=== PATIENT | female | born 1940 | race Caucasian/White ===

== ENCOUNTER → 2017-02-10 | Outpatient (CLI) | payer MEDICARE, OTHER ==
--- NOTE | 2017-02-10 18:54 | RADIOLOGY REPORT (SQ) ---
EXAM DESCRIPTION: MRI ORBIT/FACIAL/NECK COMBO COMPLETED DATE/TIME: 02/10/2017 6:10 pm REASON FOR STUDY: R22.0 LOCALIZED SWELLING,MASS AND LUMP,HEAD R22.0 LOCALIZED SWELLING, MASS AND KARISHMA MP, HEAD COMPARISON: CT BRAIN 09/14/2013 TECHNIQUE: Multiplanar multisequence imaging of the soft tissues of the neck performed without and w ith contrast. All images stored on PACS. CONTRAST TYPE AND DOSE: 15 mL Multihance. RENAL FUNCTION: GFR > 60. LIMITATIONS: Mild motion artifact FINDINGS: In the superficial lobe of the right parotid gland, superficial to the facial vein, an 11 x 9 mm well-circumscribed solid enhancing nodule is present with slightly lobular borders. No large feeding or draining blood vessels. Best shown on axial T1 image 16, coronal image 15, and sagittal i mage 5. 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 No other right parotid nodules or cysts. Left parotid gland, bilateral submandibular and sublingual glands are unremarkable. SKULL BASE: Inferior brain parenchyma in the field of view demonstrates minimal age-appropriate white matter disease in the bifrontal and biparietal regions. MAJOR SALIVARY GLANDS: As above LYMPHADENOPATHY: No adenopathy. MUCOSAL MASSES OR ASYMMETRY: No mucosal masses or asymmetry. LARYNX/CORDS: No abnormal findings. VASCULAR STRUCTURES: The major vessels are patent. LUNG APICES: Not well seen BONES: No high-grade central canal stenosis THYROID: Not well seen, at the bottom edge of the field of view PARANASAL SINUSES: Minimal mucous membrane thickening in the bilateral ethmoid air cells OTHER: No other significant finding. 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
== END ==
LOC: RAD 16:15
PROVIDERS: ATTEND Otolaryngology
DX: R22.0 Localized swelling, mass and lump, head (principal)
CPT/HCPCS: 82565; 70543; A9576

== ENCOUNTER → 2017-02-28 | Outpatient (CLI) | payer MEDICARE, OTHER ==
--- NOTE | 2017-02-28 13:31 | RADIOLOGY REPORT (SQ) ---
EXAM DESCRIPTION: CHEST PA/LATERAL COMPLETED DATE/TIME: 02/28/2017 12:56 pm REASON FOR STUDY: COUGH COMPARISON: 07/20/2009. EXAM PARAMETERS: NUMBER OF VIEWS: two views TECHNIQUE: Digital Frontal and Lateral radiographic views of the chest acquired. RADIATION DOSE: NA LIMITATIONS: none FINDINGS: LUNGS AND PLEURA: No opacities, masses or pneumothorax. No pleural effusion. MEDIASTINUM AND HILAR STRUCTURES: No masses or contour abnormalities. HEART AND VASCULAR STRUCTURES: Heart normal size. No evidence for failure. BONES: No acute findings. HARDWARE: None in the chest. OTHER: No other significant finding. IMPRESSION: NO SIGNIFICANT RADIOGRAPHIC FINDING IN THE CHEST. TECHNICAL DOCUMENTATION: JOB ID: [id number] [employer] All Rights Reserved
== END ==
LOC: OD 12:34
PROVIDERS: ATTEND Nurse Practitioner Acute Care
DX: R05 Cough (principal)
CPT/HCPCS: 71046

== ENCOUNTER 2017-03-06 09:42 | Inpatient (IN) | payer MEDICARE, OTHER ==
[2017-03-06 10:23] LABS: VENOUS BLOOD BASE EXCESS 6.1 mmol/L; VENOUS BLOOD HCO3 30.5 mmol/L (20-32); VENOUS BLOOD PCO2 42.9 mmHg (35-63); VENOUS BLOOD PH 7.47 (7.30-7.42)
[2017-03-06 10:29] LABS: HEMATOCRIT 41.5 % (36.0-47.0); HEMOGLOBIN 13.9 g/dL (12.0-15.5); MEAN CORPUSCULAR HEMOGLOBIN 27.7 pg (27.0-33.4); MEAN CORPUSCULAR HGB CONC 33.6 g/dL (32.0-36.0); MEAN CORPUSCULAR VOLUME 82 fl (80-97); PLATELET COUNT 323 10^3/uL (150-450); RED BLOOD COUNT 5.03 10^6/uL (3.72-5.28); RED CELL DISTRIBUTION WIDTH 13.4 % (11.5-14.0); WHITE BLOOD COUNT 11.2 10^3/uL (4.0-10.5)
[2017-03-06 10:30] LABS: INTERNATIONAL RATION (INR) 1.05; PROTHROMBIN TIME 14.4 SEC (11.4-15.4)
--- NOTE | 2017-03-06 10:36 | RADIOLOGY REPORT (SQ) ---
EXAM DESCRIPTION: CHEST SINGLE VIEW COMPLETED DATE/TIME: 03/06/2017 10:19 am REASON FOR STUDY: bed 19 chest sepsis protocol COMPARISON: 02/28/2017 EXAM PARAMETERS: NUMBER OF VIEWS: One view. TECHNIQUE: Single frontal radiographic view of the chest acquired. RADIATION DOSE: NA LIMITATIONS: None. FINDINGS: LUNGS AND PLEURA: No opacities, masses or pneumothorax. No pleural effusion. MEDIASTINUM AND HILAR STRUCTURES: Stable appearance. HEART AND VASCULAR STRUCTURES: Heart normal in size. Normal vasculature. BONES: No acute findings. HARDWARE: None in the chest. OTHER: No other significant finding. IMPRESSION: NO ACUTE RADIOGRAPHIC FINDING IN THE CHEST. TECHNICAL DOCUMENTATION: JOB ID: [id number] [employer]- All Rights Reserved
[2017-03-06] MEDS ORDERED: IPRATROPIUM/ALBUTEROL 0.5-2.5 MG/3 ML AMPUL NEB ONE (10:48)
[2017-03-06 10:51] LABS: ABSOLUTE LYMPHOCYTES# (MANUAL) 1.6 10^3/uL (0.5-4.7); ABSOLUTE MONOCYTES # (MANUAL) 0.8 10^3/uL (0.1-1.4); ABSOLUTE NEUTROPHILS# (MANUAL) 8.8 10^3/uL (1.7-8.2); BAND NEUTROPHILS % (MANUAL) 18 % (3-5); BASOPHILS % (MANUAL) 0 % (0-2); EOSINOPHILS % (MANUAL) 0 % (0-6); LYMPHOCYTES % (MANUAL) 13 % (13-45); METAMYELOCYTES % (MANUAL) 1 % (0); MONOCYTES % (MANUAL) 7 % (3-13); PLATELET COMMENT ADEQUATE; ROULEAUX SLIGHT; SEGMENTED NEUTROPHILS % (MAN) 60 % (42-78); TOTAL CELLS COUNTED 100; TOXIC GRANULATION 3+; TOXIC VACUOLATION PRESENT
[2017-03-06 11:01] LABS: ALANINE AMINOTRANSFERASE 27 U/L (9-52); ALBUMIN 3.5 g/dL (3.5-5.0); ALKALINE PHOSPHATASE 100 U/L (38-126); ANION GAP 12 (5-19); ASPARTATE AMINO TRANSFERASE 20 U/L (14-36); BLOOD UREA NITROGEN 25 mg/dL (7-20); CALCIUM 8.9 mg/dL (8.4-10.2); CARBON DIOXIDE 30 mmol/L (22-30); CHLORIDE 97 mmol/L (98-107); GLUCOSE 153 mg/dL (75-110); POTASSIUM 3.7 mmol/L (3.6-5.0); SODIUM 139.3 mmol/L (137-145); TOTAL PROTEIN 6.4 g/dL (6.3-8.2)
[2017-03-06] MEDS: NORMAL SALINE 1000 ML 1,000 ML IV PRN ×3 (11:01→14:39)
[2017-03-06 11:34] LABS: APPEARANCE,URINE CLOUDY; BILIRUBIN,URINE SMALL (NEGATIVE); COLOR,URINE AMBER; GLUCOSE, URINE 50 mg/dL (NEGATIVE); KETONES,URINE NEGATIVE (NEGATIVE); LEUKOCYTE ESTERASE,URINE NEGATIVE (NEGATIVE); NITRITE,URINE NEGATIVE (NEGATIVE); PROTEIN,URINE >=500 mg/dL (NEGATIVE); URINE SPECIFIC GRAVITY 1.032
[2017-03-06] MEDS ORDERED: CEFTRIAXONE INJ 1000 MG VIAL IV ONE (12:39)
--- NOTE | 2017-03-06 13:15 | ER Document Report ---
ED General - General Chief Complaint: General Weakness Stated Complaint: WEAKNESS Time Seen by Provider: 03/06/17 09:53 Mode of Arrival: Medic Information source: Patient Notes: 77 yr old female who was recently diagnosed with influenza and treated with tamiflu presents with complaitns of sob and productive cough with weakness. TRAVEL OUTSIDE OF THE [place] IN LAST 30 DAYS: No - HPI Onset: Last week Onset/Duration: Worse Quality of pain: Achy Severity: Mild Pain Level: 1 Associated symptoms: Body/muscle aches, Productive cough, Fever, Shortness of breath Exacerbated by: Denies Relieved by: Denies Similar symptoms previously: Yes Recently seen / treated by doctor: Yes - Related Data Allergies/Adverse Reactions: codeine Allergy (Verified 03/06/17 10:43) diazepam [From Valium] Allergy (Verified 03/06/17 10:43) estrogens, conjugated [From Premarin] Allergy (Verified 03/06/17 10:43) hydrocortisone [From Hydrocortone] Allergy (Verified 03/06/17 10:43) latex Allergy (Verified 03/06/17 10:43) nitrofurantoin [From Macrodantin] Allergy (Verified 03/06/17 10:43) pseudoephedrine [From Sudafed] Allergy (Verified 03/06/17 10:43) Sulfa (Sulfonamide Antibiotics) Allergy (Verified 03/06/17 10:43) Home Medications: Current Home Medications Aspirin [Aspirin EC] 81 mg PO DAILY 03/06/17 [History] Atorvastatin Calcium 10 mg PO DAILY 03/06/17 [History] Past Medical History - Social History Smoking Status: Never Smoker Cigarette use (# per day): No Chew tobacco use (# tins/day): No Smoking Education Provided: No Frequency of alcohol use: None Drug Abuse: None Family History: Reviewed & Not Pertinent Patient has suicidal ideation: No Patient has homicidal ideation: No - Past Medical History Cardiac Medical History: Reports: Hx Hypercholesterolemia Renal/ Medical History: Denies: Hx Peritoneal Dialysis Musculoskeltal Medical History: Reports Hx Musculoskeletal Deformity, Reports Hx Musculoskeletal Trauma Past Surgical History: Reports: Hx Cholecystectomy, Hx Hysterectomy, Hx Orthopedic Surgery - left knee, Hx Tubal Ligation - Immunizations Hx Diphtheria, Pertussis, Tetanus Vaccination: No Review of Systems - Review of Systems Notes: REVIEW OF SYSTEMS: CONSTITUTIONAL : Denies fever, chills, or sweats. Denies recent illness. EENT: Denies eye, ear, throat, or mouth pain or symptoms. Denies nasal or sinus congestion or discharge. Denies throat, tongue, or mouth swelling or difficulty swallowing. CARDIOVASCULAR: Denies chest pain. Denies palpitations or racing or irregular heart beat. Denies ankle edema. RESPIRATORY: Admits to cough productive GASTROINTESTINAL: Denies abdominal pain or distention. Denies nausea, vomiting , or diarrhea. Denies blood in vomitus, stools, or per rectum. Denies black, tarry stools. Denies constipation. GENITOURINARY: Denies difficulty urinating, painful urination, burning, frequency, blood in urine, or discharge. FEMALE GENITOURINARY: Denies vaginal bleeding, heavy or abnormal periods, irregular periods. Denies vaginal discharge or odor. MUSCULOSKELETAL: Denies back or neck pain or stiffness. Denies joint pain or swelling. SKIN: Denies rash, lesions or sores. HEMATOLOGIC : Denies easy bruising or bleeding. LYMPHATIC: Denies swollen, enlarged glands. NEUROLOGICAL: Denies confusion or altered mental status. Denies passing out or loss of consciousness. Denies dizziness or lightheadedness. Denies headache. Denies weakness or paralysis or loss of use of either side. Denies problems with gait or speech. Denies sensory loss, numbness, or tingling. Denies seizures. PSYCHIATRIC: Denies anxiety or stress. Denies depression, suicidal ideation, or homicidal ideation. ALL OTHER SYSTEMS REVIEWED AND NEGATIVE. PHYSICAL EXAMINATION: GENERAL: Ill-appearing HEAD: Atraumatic, normocephalic. EYES: Pupils equal round and reactive to light, extraocular movements intact, conjunctiva are normal. ENT: Nares patent, oropharynx clear without exudates. Moist mucous membranes. NECK: Normal range of motion, supple without lymphadenopathy LUNGS: Coarse breath sounds all throughout productive green sputum noted HEART: Regular rate and rhythm without murmurs ABDOMEN: Soft, nontender, nondistended abdomen. No guarding, no rebound. No masses appreciated. Female : deferred Musculoskeletal: Normal range of motion, no pitting or edema. No cyanosis. NEUROLOGICAL: Cranial nerves grossly intact. Normal speech, normal gait. Normal sensory, motor exams PSYCH: Normal mood, normal affect. SKIN: Warm, Dry, normal turgor, no rashes or lesions noted. Dictation was performed using [employer] voice recognition software Physical Exam - Vital signs Vitals: Temp Resp Pulse Ox 98.9 F 23 H 89 L 03/06/17 09:59 03/06/17 09:59 03/06/17 09:59 Course - Re-evaluation Re-evalutation: 03/06/17 14:08 Patient is noted to have a significant bandemia, she is hypoxic requiring nasal cannula, she was 85% on room air she is now on 4 L satting 95%. I believe the patient has post influenza streptococcal pneumonia, she was started on Rocephin Patient will be admitted to the hospitalist service - Vital Signs Vital signs: Temp Pulse Resp BP Pulse Ox 98.9 F 19 144/63 H 94 03/06/17 09:59 03/06/17 13:01 03/06/17 13:01 03/06/17 13:01 - Laboratory Result Diagrams: 03/06/17 10:07 03/06/17 10:07 Laboratory results interpreted by me: 03/06/17 03/06/17 03/06/17 10:07 10:07 10:07 WBC 11.2 H Band Neutrophils % 18 H Metamyelocytes % 1 H Abs Neuts (Manual) 8.8 H VBG pH 7.47 H Chloride 97 L BUN 25 H Glucose 153 H Total Bilirubin 2.0 H Direct Bilirubin 1.0 H Urine Protein Urine Glucose (UA) Urine Bilirubin Urine Urobilinogen 03/06/17 11:16 WBC Band Neutrophils % Metamyelocytes % Abs Neuts (Manual) VBG pH Chloride BUN Glucose Total Bilirubin Direct Bilirubin Urine Protein >=500 H Urine Glucose (UA) 50 H Urine Bilirubin SMALL H Urine Urobilinogen 4.0 H - Diagnostic Test Radiology reviewed: Image reviewed, Reports reviewed - EKG Interpretation by Me EKG shows normal: Sinus rhythm, [place], Intervals, QRS Complexes Critical Care Note - Critical Care Note Total time excluding time spent on procedures (mins): 35 Comments: 35 minutes of critical care time spent in direct contact evaluating and reevaluating the patient, treating symptoms, reviewing labs and studies and speaking with family and consultants excluding any procedures Discharge - Discharge Clinical Impression: Bandemia, Influenza, Hypoxemia Condition: Stable Disposition: ADMITTED INPATIENT Admitting Provider: Hospitalist Unit Admitted: Telemetry
[2017-03-06] MEDS ORDERED: ACETAMINOPHEN 325 MG TABLET PO PRN (13:29)
[2017-03-06] MEDS ORDERED: GUAIFENESIN SYRP 200 MG/10 ML UDC PO PRN (13:29)
--- NOTE | 2017-03-06 14:21 | PDOC H&P ---
History of Present Illness Admission Date/PCP: SANDRA ECHEVERRIA MD Patient complains of: Cough congestion and fever History of Present Illness: SHAVON ECHEVERRIA is a 77 year old female with past medical history of hyperlipidemia who presented to the ED with complaint of cough congestion and fever. Patient states on marek, she was feeling well. Patient states on Day she became sick with cough fever. The following day patient went to the urgent care and was diagnosed with flu. Patient was treated for flu and given something for cough. Patient states she continued to have cough fever and chills. Patient has been so congested that she has been having difficulty breathing. Patient has not been eating well and is feeling weak. Patient says normally she walks around and swim 17 labs 3 times a week. Patient states that her abdominal muscles are sore from coughing. Patient has been is also sick. ED patient was noted to be hypoxic satting 85% on room air. Patient was given a nebulizer treatment and had copious phlegm production. The phlegm was greenish in color. The hospitalist was called to admit patient for hypoxia and possible pneumonia. Past Medical History Cardiac Medical History: Reports: Hyperlipidema Past Surgical History Past Surgical History: Reports: Cholecystectomy, Hysterectomy, Orthopedic Surgery - left knee, Tubal Ligation Social History Smoking Status: Never Smoker - Advance Directive Resuscitation Status: Full Code Family History Family History: CAD, CVA Parental Family History Reviewed: No Children Family History Reviewed: No Sibling(s) Family History Reviewed.: No Medication/Allergy Home Medications: Aspirin [Aspirin EC] 81 mg PO DAILY 03/06/17 Atorvastatin Calcium 10 mg PO DAILY 03/06/17 Allergies/Adverse Reactions: codeine Allergy (Verified 03/06/17 10:43) diazepam [From Valium] Allergy (Verified 03/06/17 10:43) estrogens, conjugated [From Premarin] Allergy (Verified 03/06/17 10:43) hydrocortisone [From Hydrocortone] Allergy (Verified 03/06/17 10:43) latex Allergy (Verified 03/06/17 10:43) nitrofurantoin [From Macrodantin] Allergy (Verified 03/06/17 10:43) pseudoephedrine [From Sudafed] Allergy (Verified 03/06/17 10:43) Sulfa (Sulfonamide Antibiotics) Allergy (Verified 03/06/17 10:43) Physical Exam Vital Signs: Temp Pulse Resp BP Pulse Ox 98.9 F 19 144/63 H 94 03/06/17 09:59 03/06/17 13:01 03/06/17 13:01 03/06/17 13:01 Intake & Output 03/05/17 03/06/17 03/07/17 06:59 06:59 06:59 Weight 86.183 kg General appearance: PRESENT: no acute distress, obese, well-developed, well- nourished Head exam: PRESENT: normocephalic Eye exam: PRESENT: EOMI. ABSENT: scleral icterus Ear exam: PRESENT: normal external ear exam Mouth exam: PRESENT: moist Neck exam: ABSENT: carotid bruit, JVD, lymphadenopathy, thyromegaly Respiratory exam: PRESENT: rhonchi - Patient unable to speak in complete sentences without pausing., tachypnea. ABSENT: rales, wheezes Cardiovascular exam: PRESENT: RRR. ABSENT: diastolic murmur, rubs, systolic murmur Pulses: PRESENT: normal dorsalis pedis pul Vascular exam: PRESENT: normal capillary refill GI/Abdominal exam: PRESENT: normal bowel sounds, soft. ABSENT: distended, guarding, mass, organolmegaly, rebound, tenderness Rectal exam: PRESENT: deferred Extremities exam: PRESENT: full ROM. ABSENT: calf tenderness, clubbing, pedal edema Neurological exam: PRESENT: alert, awake, oriented to person, oriented to place , oriented to time, oriented to situation, CN II-XII grossly intact. ABSENT: motor sensory deficit Psychiatric exam: PRESENT: appropriate affect, normal mood. ABSENT: homicidal ideation, suicidal ideation Skin exam: PRESENT: dry, intact, warm. ABSENT: cyanosis, rash Results Laboratory Results: 03/06/17 10:07 03/06/17 10:07 03/06/17 03/06/17 03/06/17 10:07 10:07 10:07 WBC 11.2 H RBC 5.03 Hgb 13.9 Hct 41.5 MCV 82 MCH 27.7 MCHC 33.6 RDW 13.4 Plt Count 323 Seg Neutrophils % Not Reportable Lymphocytes % Not Reportable Monocytes % Not Reportable Eosinophils % Not Reportable Basophils % Not Reportable Absolute Neutrophils Not Reportable Absolute Lymphocytes Not Reportable Absolute Monocytes Not Reportable Absolute Eosinophils Not Reportable Absolute Basophils Not Reportable VBG pH VBG pCO2 VBG HCO3 VBG Base Excess Sodium 139.3 Potassium 3.7 Chloride 97 L Carbon Dioxide 30 Anion Gap 12 BUN 25 H Creatinine 0.89 Est GFR ( Amer) > 60 Est GFR (Non-Af Amer) > 60 Glucose 153 H Lactic Acid 1.5 Calcium 8.9 Total Bilirubin 2.0 H AST 20 ALT 27 Alkaline Phosphatase 100 Total Protein 6.4 Albumin 3.5 Urine Color Urine Appearance Urine pH Ur Specific [place] Urine Protein Urine Glucose (UA) Urine Ketones Urine Blood Urine Nitrite Ur Leukocyte Esterase Urine WBC (Auto) Urine RBC (Auto) 03/06/17 03/06/17 10:07 11:16 WBC RBC Hgb Hct MCV MCH MCHC RDW Plt Count Seg Neutrophils % Lymphocytes % Monocytes % Eosinophils % Basophils % Absolute Neutrophils Absolute Lymphocytes Absolute Monocytes Absolute Eosinophils Absolute Basophils VBG pH 7.47 H VBG pCO2 42.9 VBG HCO3 30.5 VBG Base Excess 6.1 Sodium Potassium Chloride Carbon Dioxide Anion Gap BUN Creatinine Est GFR ( Amer) Est GFR (Non-Af Amer) Glucose Lactic Acid Calcium Total Bilirubin AST ALT Alkaline Phosphatase Total Protein Albumin Urine Color DEANDRA Urine Appearance CLOUDY Urine pH 5.0 Ur Specific [place] 1.032 Urine Protein >=500 H Urine Glucose (UA) 50 H Urine Ketones NEGATIVE Urine Blood NEGATIVE Urine Nitrite NEGATIVE Ur Leukocyte Esterase NEGATIVE Urine WBC (Auto) 14 Urine RBC (Auto) 12 Impressions: Chest X-Ray 03/06/17 00:00 IMPRESSION: NO ACUTE RADIOGRAPHIC FINDING IN THE CHEST. Assessment & Plan - Diagnosis (1) Hypoxemia Is this a current diagnosis for this admission?: Yes Plan: Likely due to her respiratory congestion following a viral infection. Patient will receive aggressive pulmonary toilet along with supplemental oxygen. Patient is currently on 4 L. (2) Influenza Is this a current diagnosis for this admission?: Yes Plan: She was recently treated for influenza however continues to be febrile with cough and malaise. Continue supportive care with IV hydration and antipyretics. (3) Dehydration Is this a current diagnosis for this admission?: Yes Plan: Will continue IV hydration with normal saline at 75 cc an hour. (4) Congestion of respiratory tract Is this a current diagnosis for this admission?: Yes Plan: Could be a respiratory infection secondary to her fluids up. Patient chest x- ray is negative however on physical exam she is severely congested along with hypoxia. Patient started on nebs along with Mucomyst to be used with a flutter valve. Patient is also on ceftriaxone and azithromycin. Sputum culture was ordered. (5) Bandemia Is this a current diagnosis for this admission?: Yes Plan: Most likely following her viral infection. Patient started on ceftriaxone and azithromycin after blood cultures were drawn. Will monitor. (6) Lipidemia Is this a current diagnosis for this admission?: Yes Plan: Continue on statin. - Time Time Spent: 30 to 50 Minutes Critical Time spent with patient: Less than 15 minutes Anticipated discharge: Home Within: within 72 hours
--- NOTE | 2017-03-06 16:46 | EKG REPORT ---
SEVERITY:- BORDERLINE ECG - SINUS TACHYCARDIA NONSPECIFIC ANTERIOR ST-T CHANGES : Confirmed by: Manuel Gordon MD 06-Mar-2017 16:45:06
[2017-03-06] MEDS: ACETYLCYSTEINE 20% SOLN 800 MG/4 ML VIAL.NEB NEB SCH (20:45)
[2017-03-06] MEDS: LEVALBUTEROL HCL NEB 1.25 MG/3 ML AMPUL NEB SCH (20:45)
[2017-03-06] MEDS: BENZONATATE 100 MG CAPSULE PO SCH (21:36)
[2017-03-07] MEDS: BENZONATATE 100 MG CAPSULE PO SCH ×3 (05:07→21:48)
[2017-03-07] MEDS: LANSOPRAZOLE 30 MG TAB.RAP.DR PO SCH (05:08)
[2017-03-07] MEDS: NORMAL SALINE 1000 ML 1,000 ML IV PRN (05:09)
[2017-03-07 06:19] LABS: ANION GAP 8 (5-19); BLOOD UREA NITROGEN 18 mg/dL (7-20); CALCIUM 8.2 mg/dL (8.4-10.2); CARBON DIOXIDE 30 mmol/L (22-30); CHLORIDE 105 mmol/L (98-107); GLUCOSE 99 mg/dL (75-110); POTASSIUM 3.5 mmol/L (3.6-5.0); SODIUM 142.8 mmol/L (137-145)
[2017-03-07 06:30] LABS: ABSOLUTE NEUT (AUTO) 7.1 10^3/uL (1.7-8.2); BASOPHILS % (AUTO) 0.4 % (0-2); EOSINOPHILS % (AUTO) 0.1 % (0-6); HEMATOCRIT 35.4 % (36.0-47.0); MEAN CORPUSCULAR HGB CONC 33.8 g/dL (32.0-36.0); MEAN CORPUSCULAR VOLUME 83 fl (80-97); MONOCYTES % (AUTO) 10.5 % (3-13); PLATELET COUNT 269 10^3/uL (150-450); RED BLOOD COUNT 4.29 10^6/uL (3.72-5.28); RED CELL DISTRIBUTION WIDTH 13.7 % (11.5-14.0); TOTAL CELLS COUNTED % (AUTO) 100 %; WHITE BLOOD COUNT 9.1 10^3/uL (4.0-10.5)
[2017-03-07] MEDS: ACETYLCYSTEINE 20% SOLN 800 MG/4 ML VIAL.NEB NEB SCH (08:33)
[2017-03-07] MEDS: LEVALBUTEROL HCL NEB 1.25 MG/3 ML AMPUL NEB SCH ×3 (08:33→19:56)
[2017-03-07] MEDS ORDERED: CEFTRIAXONE 1 GM/D5W RTU 1 GM/50 ML RTUPB IV SCH (10:00)
[2017-03-07] MEDS: ASPIRIN 81 MG TABLET, ENT COATED PO SCH (10:44)
[2017-03-07] MEDS: AZITHROMYCIN 250 MG TABLET PO SCH (10:44)
[2017-03-07] MEDS: CEFTRIAXONE SODIUM 1,000 MG in DEXTROSE 5%-WATER 50 ML IV SCH (10:45)
--- NOTE | 2017-03-07 16:29 | PDOC PROGRESS REPORT ---
Subjective Progress Note for:: 03/07/17 Subjective:: Patient presented with respiratory symptoms. Sputum growing H. Influenza. Patient states she has a horrible night. Patient still coughing and congested. Reason For Visit: PNEUMONIA Physical Exam Vital Signs: Temp Pulse Resp BP Pulse Ox 98.6 F 100 18 128/54 H 98 03/07/17 12:01 03/07/17 14:00 03/07/17 14:00 03/07/17 12:01 03/07/17 14:00 Intake & Output 03/06/17 03/07/17 03/08/17 06:59 06:59 06:59 Intake Total 825 222 Balance 825 222 Weight 85.5 kg General appearance: PRESENT: no acute distress, obese Head exam: PRESENT: normocephalic Eye exam: PRESENT: EOMI. ABSENT: scleral icterus Ear exam: PRESENT: normal external ear exam Mouth exam: PRESENT: moist Neck exam: ABSENT: carotid bruit, JVD, lymphadenopathy, thyromegaly Respiratory exam: PRESENT: other - congested with cough. ABSENT: rales, rhonchi , wheezes Cardiovascular exam: PRESENT: RRR. ABSENT: diastolic murmur, rubs, systolic murmur GI/Abdominal exam: PRESENT: normal bowel sounds, soft. ABSENT: distended, guarding, mass, organolmegaly, rebound, tenderness Rectal exam: PRESENT: deferred Extremities exam: PRESENT: full ROM. ABSENT: calf tenderness, clubbing, pedal edema Neurological exam: PRESENT: alert, awake, oriented to person, oriented to place , oriented to time, oriented to situation, CN II-XII grossly intact. ABSENT: motor sensory deficit Psychiatric exam: PRESENT: appropriate affect, normal mood. ABSENT: homicidal ideation, suicidal ideation Skin exam: PRESENT: dry, intact, warm. ABSENT: cyanosis, rash Results Laboratory Results: 03/07/17 05:48 03/07/17 05:48 03/07/17 03/07/17 05:48 05:48 WBC 9.1 RBC 4.29 Hgb 12.0 Hct 35.4 L MCV 83 MCH 28.0 MCHC 33.8 RDW 13.7 Plt Count 269 Seg Neutrophils % 78.0 Lymphocytes % 11.0 L Monocytes % 10.5 Eosinophils % 0.1 Basophils % 0.4 Absolute Neutrophils 7.1 Absolute Lymphocytes 1.0 Absolute Monocytes 1.0 Absolute Eosinophils 0.0 Absolute Basophils 0.0 Sodium 142.8 Potassium 3.5 L Chloride 105 Carbon Dioxide 30 Anion Gap 8 BUN 18 Creatinine 0.61 Est GFR ( Amer) > 60 Est GFR (Non-Af Amer) > 60 Glucose 99 Calcium 8.2 L Impressions: Chest X-Ray 03/06/17 00:00 IMPRESSION: NO ACUTE RADIOGRAPHIC FINDING IN THE CHEST. Assessment & Plan - Diagnosis (1) Pneumonia Qualifiers: Pneumonia type: due to Haemophilus influenzae Laterality: unspecified laterality Is this a current diagnosis for this admission?: Yes Plan: Patient on ceftriaxone and azithromycin. Continue current management. (2) Hypoxemia Is this a current diagnosis for this admission?: Yes Plan: Likely due to her respiratory congestion following a viral infection. Patient will receive aggressive pulmonary toilet along with supplemental oxygen. Patient sating 94% on 2L. (3) Influenza Is this a current diagnosis for this admission?: Yes Plan: She was recently treated for influenza however continues to be febrile with cough and malaise. Patient has not been febrile in the hospital. Patient is feeling better but is still congested. Will continue supportive care. (4) Dehydration Is this a current diagnosis for this admission?: Yes Plan: Continue IV hydration with normal saline at 75 cc an hour. (5) Congestion of respiratory tract Is this a current diagnosis for this admission?: Yes Plan: Continue nebs and mucinex. Patient is also using flutter valve. (6) Bandemia Is this a current diagnosis for this admission?: Yes Plan: Improving. Secondary to pneumonia with H. Influenza. Will continue ceftriaxone and azithromycin. (7) Lipidemia Is this a current diagnosis for this admission?: Yes Plan: Continue on statin. - Time Time Spent with patient: 15-24 minutes Anticipated discharge: Home Within: within 72 hours - Inpatient Certification Medical Necessity: Need For IV Fluids, Need for Nebulizer Therapy and Monitoring of Response
[2017-03-07] MEDS ORDERED: VANCOMYCIN HCL 0 MG in DEXTROSE 5%-WATER 250 ML IV NR (20:30)
[2017-03-07] MEDS: VANCOMYCIN HCL 1,500 MG in DEXTROSE 5%-WATER 250 ML IV SCH (21:47)
[2017-03-07] MEDS: GUAIFENESIN 600 MG TABLET.SA PO SCH (21:47)
[2017-03-07] MEDS: ATORVASTATIN CALCIUM 10 MG TABLET PO SCH (21:48)
[2017-03-07] MEDS ORDERED: VANCOMYCIN HCL 1,250 MG in DEXTROSE 5%-WATER 250 ML IV SCH (22:00)
[2017-03-08 05:22] LABS: ANION GAP 8 (5-19); BLOOD UREA NITROGEN 13 mg/dL (7-20); CALCIUM 8.3 mg/dL (8.4-10.2); CARBON DIOXIDE 29 mmol/L (22-30); CHLORIDE 103 mmol/L (98-107); GLUCOSE 105 mg/dL (75-110); POTASSIUM 3.1 mmol/L (3.6-5.0); SODIUM 140.1 mmol/L (137-145)
[2017-03-08] MEDS: BENZONATATE 100 MG CAPSULE PO SCH ×3 (05:34→21:18)
[2017-03-08] MEDS: LANSOPRAZOLE 30 MG TAB.RAP.DR PO SCH (05:34)
[2017-03-08] MEDS: LEVALBUTEROL HCL NEB 1.25 MG/3 ML AMPUL NEB SCH ×3 (07:59→20:03)
[2017-03-08] MEDS ORDERED: NORMAL SALINE 1000 ML 1,000 ML IV PRN (09:39)
[2017-03-08] MEDS ORDERED: POTASSIUM CHLORIDE 10 MEQ TABLET.SA PO ONE (09:45)
[2017-03-08] MEDS: AZITHROMYCIN 250 MG TABLET PO SCH (09:50)
[2017-03-08] MEDS: ASPIRIN 81 MG TABLET, ENT COATED PO SCH (09:50)
[2017-03-08] MEDS: GUAIFENESIN 600 MG TABLET.SA PO SCH ×2 (09:50→21:18)
[2017-03-08] MEDS: POTASSIUM CHLORIDE 10 MEQ TABLET.SA PO SCH ×2 (11:21→22:20)
[2017-03-08] MEDS: CEFTRIAXONE SODIUM 1,000 MG in DEXTROSE 5%-WATER 50 ML IV SCH (11:29)
[2017-03-08] MEDS: ATORVASTATIN CALCIUM 10 MG TABLET PO SCH (21:18)
[2017-03-08] MEDS: VANCOMYCIN HCL 1,500 MG in DEXTROSE 5%-WATER 250 ML IV SCH (21:20)
--- NOTE | 2017-03-08 23:06 | PDOC PROGRESS REPORT ---
Subjective Progress Note for:: 03/08/17 Subjective:: Patient presented with respiratory symptoms. Sputum growing H. Influenza. Patient with GPC on blood culture called to overnight doctor. Patient started on vancomyin. Patient states she feels better although she continues to cough. Reason For Visit: PNEUMONIA Physical Exam Vital Signs: Temp Pulse Resp BP Pulse Ox 98.7 F 94 20 146/82 H 94 03/08/17 20:32 03/08/17 20:32 03/08/17 20:32 03/08/17 20:32 03/08/17 20:32 Intake & Output 03/07/17 03/08/17 03/09/17 06:59 06:59 06:59 Intake Total 825 2857 1038 Output Total 0 325 Balance 825 2857 713 Weight 85.5 kg 86.1 kg General appearance: PRESENT: no acute distress, obese, well-developed Eye exam: ABSENT: scleral icterus Mouth exam: PRESENT: moist Neck exam: ABSENT: carotid bruit, JVD, lymphadenopathy, thyromegaly Respiratory exam: PRESENT: rhonchi, other - coarse jamila sounds hash cough. ABSENT: rales, wheezes Cardiovascular exam: PRESENT: RRR. ABSENT: diastolic murmur, rubs, systolic murmur Pulses: PRESENT: normal dorsalis pedis pul Vascular exam: PRESENT: normal capillary refill GI/Abdominal exam: PRESENT: normal bowel sounds, soft. ABSENT: distended, guarding, mass, organolmegaly, rebound, tenderness Rectal exam: PRESENT: deferred Extremities exam: PRESENT: full ROM. ABSENT: calf tenderness, clubbing, pedal edema Neurological exam: PRESENT: alert, awake, oriented to person, oriented to place , oriented to time, oriented to situation, CN II-XII grossly intact. ABSENT: motor sensory deficit Psychiatric exam: PRESENT: appropriate affect, normal mood. ABSENT: homicidal ideation, suicidal ideation Skin exam: PRESENT: dry, intact, warm. ABSENT: cyanosis, rash Results Laboratory Results: 03/07/17 05:48 03/08/17 04:40 03/08/17 04:40 Sodium 140.1 Potassium 3.1 L Chloride 103 Carbon Dioxide 29 Anion Gap 8 BUN 13 Creatinine 0.61 Est GFR ( Amer) > 60 Est GFR (Non-Af Amer) > 60 Glucose 105 Calcium 8.3 L Impressions: Chest X-Ray 03/06/17 00:00 IMPRESSION: NO ACUTE RADIOGRAPHIC FINDING IN THE CHEST. Assessment & Plan - Diagnosis (1) Pneumonia Qualifiers: Pneumonia type: due to Haemophilus influenzae Laterality: unspecified laterality Is this a current diagnosis for this admission?: Yes Plan: Patient on ceftriaxone and azithromycin. Vancomycin added for GPC on blood culture. Continue current management. (2) Hypoxemia Is this a current diagnosis for this admission?: Yes Plan: Likely due to her respiratory congestion following a viral infection. Patient sounding better. Will continue nebs and supplemental oxygen. (3) Influenza Is this a current diagnosis for this admission?: Yes Plan: She was recently treated for influenza however continues to be febrile with cough and malaise. Patient afebrile. Will saline lock as patient is eating and drinking well. (4) Dehydration Is this a current diagnosis for this admission?: Yes Plan: Saline lock as patient is drinking well. (5) Congestion of respiratory tract Is this a current diagnosis for this admission?: Yes Plan: Improving. Continue nebs and mucinex. Patient is also using flutter valve. (6) Bandemia Is this a current diagnosis for this admission?: Yes Plan: Improving. Secondary to pneumonia with H. Influenza. Continue ceftriaxone and azithromycin. (7) Lipidemia Is this a current diagnosis for this admission?: Yes Plan: Continue on statin. (8) Bacteremia Is this a current diagnosis for this admission?: Yes Plan: GPC on blood culture. 1/2 bottles which is suspicious for contaminant. Patient on vancomycin until bacterial species is known. - Time Time Spent with patient: 15-24 minutes Anticipated discharge: Home with Homehealth Within: within 48 hours - Inpatient Certification Medical Necessity: Need for Nebulizer Therapy and Monitoring of Response, Need for IV Antibiotics
[2017-03-09] MEDS: LANSOPRAZOLE 30 MG TAB.RAP.DR PO SCH (06:12)
[2017-03-09] MEDS: BENZONATATE 100 MG CAPSULE PO SCH ×2 (06:12→13:27)
[2017-03-09 06:48] LABS: ANION GAP 8 (5-19); BLOOD UREA NITROGEN 10 mg/dL (7-20); CALCIUM 8.4 mg/dL (8.4-10.2); CARBON DIOXIDE 28 mmol/L (22-30); CHLORIDE 104 mmol/L (98-107); GLUCOSE 100 mg/dL (75-110); MAGNESIUM 1.9 mg/dL (1.6-2.3); POTASSIUM 3.8 mmol/L (3.6-5.0); SODIUM 140.4 mmol/L (137-145)
[2017-03-09] MEDS: LEVALBUTEROL HCL NEB 1.25 MG/3 ML AMPUL NEB SCH ×2 (09:21→14:32)
[2017-03-09] MEDS: AZITHROMYCIN 250 MG TABLET PO SCH (09:49)
[2017-03-09] MEDS: ASPIRIN 81 MG TABLET, ENT COATED PO SCH (09:49)
[2017-03-09] MEDS: CEFTRIAXONE SODIUM 1,000 MG in DEXTROSE 5%-WATER 50 ML IV SCH (09:49)
[2017-03-09] MEDS: GUAIFENESIN 600 MG TABLET.SA PO SCH (09:49)
[2017-03-09 12:26] VITALS: BP 140/62
--- NOTE | 2017-03-09 12:58 | PDOC DISCHARGE SUMMARY ---
General - Admit/Disc Date/PCP Admission Date/Primary Care Provider: 03/06/17 13:43 SANDRA ECHEVERRIA MD Discharge Date: 03/09/17 - Discharge Diagnosis (1) Pneumonia Is this a current diagnosis for this admission?: Yes (2) Hypoxemia Is this a current diagnosis for this admission?: Yes (3) Influenza Is this a current diagnosis for this admission?: Yes (4) Dehydration Is this a current diagnosis for this admission?: Yes (5) Congestion of respiratory tract Is this a current diagnosis for this admission?: Yes (6) Bandemia Is this a current diagnosis for this admission?: Yes (7) Lipidemia Is this a current diagnosis for this admission?: Yes (8) Bacteremia Is this a current diagnosis for this admission?: Yes - Additional Information Resuscitation Status: Full Code Discharge Diet: As Tolerated Discharge Activity: Activity As Tolerated Prescriptions: Azithromycin [Zithromax 250 mg Tablet] 500 mg PO DAILY 7 Days #14 tablet Benzonatate [Tessalon Perles 100 mg Capsule] 100 mg PO Q8H PRN #20 capsule PRN Reason: Home Medications: Aspirin [Aspirin EC] 81 mg PO DAILY 03/06/17 Atorvastatin Calcium 10 mg PO DAILY 03/06/17 Azithromycin [Zithromax 250 mg Tablet] 500 mg PO DAILY 7 Days #14 tablet Benzonatate [Tessalon Perles 100 mg Capsule] 100 mg PO Q8H PRN #20 capsule 03/09 History of Present Illness History of Present Illness: SHAVON ECHEVERRIA is a 77 year old female with past medical history of hyperlipidemia who presented to the ED with complaint of cough congestion and fever. Patient states on marek, she was feeling well. Patient states on Day she became sick with cough fever. The following day patient went to the urgent care and was diagnosed with flu. Patient was treated for flu and given something for cough. Patient states she continued to have cough fever and chills. Patient has been so congested that she has been having difficulty breathing. Patient has not been eating well and is feeling weak. Patient says normally she walks around and swim 17 labs 3 times a week. Patient states that her abdominal muscles are sore from coughing. Patient has been is also sick. ED patient was noted to be hypoxic satting 85% on room air. Patient was given a nebulizer treatment and had copious phlegm production. The phlegm was greenish in color. The hospitalist was called to admit patient for hypoxia and possible pneumonia. Original H&P dictated by Dr. Char Corral. Please refer H&P for complete details. Hospital Course Hospital Course: Patient apparently had pneumonia starting in the beginning of the year. Patient came down with a cough and was having low-grade temps at home. Patient sputum was positive for H influenza a. Patient was on ceftriaxone and azithromycin. Patient was very congested and required Mucomyst, nebulizers, Mucinex and Tessalon Perles. She was also hydrated gently at 75 cc an hour with normal saline. Patient shown significant improvement after 3 days of supportive care. Patient did have some hypoxia most likely due to her respiratory congestion and what we now know pneumonia. Patient showed significant improvement with maintaining her saturations off oxygen. Patient bandemia was most likely secondary to her H influenza pneumonia. Patient has lipidemia however is on a statin. Patient did have a blood culture that grew pneumococcus capitis. Patient was started on vancomycin initially on 2 this was speciated. This is more than likely a contaminant as a result of vancomycin was discontinued. Patient states she feels significantly better she is coughing however nowhere near how she was before. Patient also is no longer having sputum production and she is no longer congested. Patient is able to ambulate without any difficulty or hypoxia. She has been discharged home with PT,OT and nursing. Physical Exam Vital Signs: Temp Pulse Resp BP Pulse Ox 98.7 F 94 21 H 140/62 H 90 L 03/09/17 12:25 03/09/17 12:25 03/09/17 12:25 03/09/17 12:25 03/09/17 12:25 Intake & Output 03/08/17 03/09/17 03/10/17 06:59 06:59 06:59 Intake Total 2857 1368 Output Total 0 325 Balance 2857 1043 Weight 86.1 kg 88.2 kg General appearance: PRESENT: no acute distress, obese Head exam: PRESENT: normocephalic Eye exam: PRESENT: EOMI. ABSENT: scleral icterus Mouth exam: PRESENT: moist Neck exam: ABSENT: carotid bruit, JVD, lymphadenopathy, thyromegaly Respiratory exam: PRESENT: clear to auscultation andrei. ABSENT: rales, rhonchi, wheezes Cardiovascular exam: PRESENT: RRR. ABSENT: diastolic murmur, rubs, systolic murmur Pulses: PRESENT: normal dorsalis pedis pul Vascular exam: PRESENT: normal capillary refill GI/Abdominal exam: PRESENT: normal bowel sounds, soft. ABSENT: distended, guarding, mass, organolmegaly, rebound, tenderness Rectal exam: PRESENT: deferred Extremities exam: PRESENT: full ROM. ABSENT: calf tenderness, clubbing, pedal edema Neurological exam: PRESENT: alert, awake, oriented to person, oriented to place , oriented to time, oriented to situation, CN II-XII grossly intact. ABSENT: motor sensory deficit Psychiatric exam: PRESENT: appropriate affect, normal mood. ABSENT: homicidal ideation, suicidal ideation Skin exam: PRESENT: dry, intact, warm. ABSENT: cyanosis, rash Results Laboratory Results: 03/07/17 05:48 03/09/17 05:40 03/09/17 05:40 Sodium 140.4 Potassium 3.8 Chloride 104 Carbon Dioxide 28 Anion Gap 8 BUN 10 Creatinine 0.56 Est GFR ( Amer) > 60 Est GFR (Non-Af Amer) > 60 Glucose 100 Calcium 8.4 Magnesium 1.9 Impressions: Chest X-Ray 03/06/17 00:00 IMPRESSION: NO ACUTE RADIOGRAPHIC FINDING IN THE CHEST. Qualifiers PATEINT BEING DISCHARGED WITH ANY OF THE FOLLOWING DIAGNOSIS?: No Plan Discharge Plan: She is being discharged home on azithromycin 500 mg p.o. daily for 7 more days. Patient also being discharged on Tessalon Perles 100 mg every 8 as needed as needed for cough. Patient should keep herself hydrated and follow-up with her PCP as soon as possible. Time Spent: Greater than 30 Minutes
== END 2017-03-09 14:41 | disposition home health service (06) | DRG 195 ==
LOC: ER 09:42 → EH 13:43 → 3W 20:19
PROVIDERS: ADMIT Internal Medicine; ATTEND Internal Medicine
PROC: 3E0F73Z Introduction of Anti-inflammatory into Respiratory Tract, Via Natural or Artificial Opening (ICD-10-PCS; principal; 2017-03-06)
DX: J14 Pneumonia due to Hemophilus influenzae (principal); E86.0 Dehydration; R09.02 Hypoxemia; E78.5 Hyperlipidemia, unspecified; Z88.6 Allergy status to analgesic agent; Z91.040 Latex allergy status; Z88.8 Allergy status to other drugs, medicaments and biological substances; Z88.2 Allergy status to sulfonamides
CPT/HCPCS: 36415; 71045; 80048; 80053; 81001; 82803; 83605; 83735; 85025; 85610; 87040; 87070; 87077; 87086; 87186; 87205; 93005; 93010; 94667; 94668; 96361; 96365; 99285; J0696; J3370; J3490; J7030; J7060; J7620

== ENCOUNTER 2019-03-26 07:15 | Day surgery (SDC) | payer MEDICARE, OTHER ==
[~2019-03-26 07:15] MED LIST: BUPIVACAINE HCL 0.75% INJ/PF (7.5 MG/1 ML) 10 ML SDV OD PRN; CHONDR SU A NA/HYALUR INTRAOC KIT (SURGICARE) ONE; EPINEPHRINE INJ/PF 1 MG/1 ML AMPULE ONE; LIDOCAINE 1% INJ-PF (10 MG/ML) 30 ML SDV ONE; LIDOCAINE 4% INJ/PF (40 MG/ML) 5 ML AMPUL OD PRN; MIDAZOLAM 2 MG/2 ML INJ ONE
[2019-03-26] MEDS: CYCLOPENTOLATE 0.2%/PHENYLEPHRINE 1% OPH SOLN 2 ML OD PRN ×3 (07:51→08:05)
[2019-03-26] MEDS: TETRACAINE HCL 0.5% OPH SOLN 4 ML OD PRN ×3 (07:51→08:25)
[2019-03-26] MEDS: TROPICAMIDE 1% OPH SOLN 15 ML OD PRN ×3 (07:51→08:05)
[2019-03-26] MEDS: BESIFLOXACIN HCL 0.6% OPH SUSP 5 ML BOTTLE OD PRN ×3 (07:52→08:48)
[2019-03-26] MEDS: KETOROLAC TROMETHAMINE 0.45% 4 DROP/0.4 ML DROPERETTE OD PRN ×2 (07:52→07:57)
[2019-03-26] MEDS: DORZOLAMIDE HCL 2%/TIMOLOL MALEAT 0.5% OPH SOLN 10 ML OD PRN ×2 (08:48)
--- NOTE | 2019-03-26 09:49 | Operative Report ---
Operative Report-[facility] Operative Report: DATE OF SURGERY: 03/26/2019 PREOPERATIVE DIAGNOSIS: CATARACT, RIGHT EYE. POSTOPERATIVE DIAGNOSIS: CATARACT, RIGHT EYE. PROCEDURE PERFORMED: PHACOEMULSIFICATION WITH POSTERIOR CHAMBER INTRAOCULAR LENS, RIGHT EYE. Intraocular Lens Model : SN 60 WF 21.0 Total Phaco Time: 9.20 CDE SURGEON: CAROLINA DANIEL MD ANESTHESIA: TOPICAL WITH MAC. INDICATIONS FOR SURGERY: Difficulty driving at night. PROCEDURE: The patient was brought to the Operating Room and placed on the operative table. Following tetracaine drops, topical anesthesia was administered. This consisted of instrument wipe pledgets soaked in a solution of 4% Xylocaine mixed with 0.75% Marcaine in a 1:2 ratio. A 2 x 1 cm pledget was placed in the superior fornix. A 1 x 1 cm pledget was placed in the inferior fornix. The eye was patched shut for 5 minutes. The patch was removed. The eye was sterilely prepped and draped in the usual manner. Lid speculum was placed in the eye. The pledgets were removed. 4-0 black silk sutures were placed around the superior and the inferior rectus muscles to be used as traction. A conjunctival peritomy was made at the 10 o'clock position. Hemostasis was obtained with bipolar cautery. A posterior limbal groove was created using a crescent knife and dissected anteriorly towards the cornea. A sharp point blade was used to create a paracentesis site at the 2 o'clock position. 0.2 cc non preserved Lidocaine was injected into the anterior chamber. A 2.4 mm keratome was used to enter the anterior chamber through the groove. Viscoelastic was injected into the anterior chamber. An anterior capsulotomy was performed using Utrata forceps in a capsulorrhexis fashion. Hydrodissection and hydrodelineation were performed. Phacoemulsification was performed in [id number] technique. Following this, the I/A unit was used to remove residual cortex. Viscoelastic was injected into the capsular bag. The Intraocular lens was placed in the capsular bag. The I/A unit was used to remove residual viscoelastic. The wound was seen to be watertight under high and low pressure, and no sutures were placed. The intraocular lens was well centered. The pressure was adjusted in the eye to normal pressure. The 4-0 black silk sutures and lid speculum were removed. The eye was shielded after Besivance. prednisolone, and Cosopt drops were placed. The patient tolerated the procedure well and was sent to the Recovery Room in good condition.
== END 2019-03-26 09:20 | disposition home or self-care (01) ==
LOC: SC 07:15
PROVIDERS: ATTEND Ophthalmology
DX: H25.813 Combined forms of age-related cataract, bilateral (principal); H35.371 Puckering of macula, right eye; H02.831 Dermatochalasis of right upper eyelid; H02.834 Dermatochalasis of left upper eyelid; H40.013 Open angle with borderline findings, low risk, bilateral; I10 Essential (primary) hypertension; E78.00 Pure hypercholesterolemia, unspecified; J45.909 Unspecified asthma, uncomplicated; Z85.828 Personal history of other malignant neoplasm of skin; Z85.820 Personal history of malignant melanoma of skin; Z91.040 Latex allergy status
CPT/HCPCS: 66984; V2632; J2250; J3490 ×5; A9270; J0171

== ENCOUNTER 2019-04-23 06:44 | Day surgery (SDC) | payer MEDICARE, OTHER ==
[~2019-04-23 06:44] MED LIST changes: -BUPIVACAINE HCL 0.75% INJ/PF (7.5 MG/1 ML) 10 ML SDV OD PRN; +BUPIVACAINE HCL 0.75% INJ/PF (7.5 MG/1 ML) 10 ML SDV OS PRN; -CHONDR SU A NA/HYALUR INTRAOC KIT (SURGICARE) ONE; -EPINEPHRINE INJ/PF 1 MG/1 ML AMPULE ONE; +KETOROLAC TROMETHAMINE 0.45% 4 DROP/0.4 ML DROPERETTE OS PRN; -LIDOCAINE 1% INJ-PF (10 MG/ML) 30 ML SDV ONE; -LIDOCAINE 4% INJ/PF (40 MG/ML) 5 ML AMPUL OD PRN; +LIDOCAINE 4% INJ/PF (40 MG/ML) 5 ML AMPUL OS PRN; -MIDAZOLAM 2 MG/2 ML INJ ONE
[2019-04-23] MEDS: TETRACAINE HCL 0.5% OPH SOLN 4 ML OS PRN ×2 (07:00→07:23)
[2019-04-23] MEDS: BESIFLOXACIN HCL 0.6% OPH SUSP 5 ML BOTTLE OS PRN ×4 (07:00→07:56)
[2019-04-23] MEDS: TROPICAMIDE 1% OPH SOLN 15 ML OS PRN ×3 (07:00→07:20)
[2019-04-23] MEDS: CYCLOPENTOLATE 0.2%/PHENYLEPHRINE 1% OPH SOLN 2 ML OS PRN ×3 (07:00→07:20)
[2019-04-23] MEDS ORDERED: MIDAZOLAM 2 MG/2 ML INJ ONE ×2 (07:09→07:10)
[2019-04-23] MEDS ORDERED: ONDANSETRON HCL INJ/PF 4 MG/2 ML SDV ONE (07:09)
[2019-04-23] MEDS ORDERED: GLYCOPYRROLATE INJ 0.4 MG/2 ML VIAL ONE (07:10)
[2019-04-23] MEDS ORDERED: PROPOFOL INJ 200 MG/20 ML VIAL IV ONE (07:10)
[2019-04-23] MEDS: LIDOCAINE 1% INJ-PF (10 MG/ML) 30 ML SDV ONE ×2 (07:41→07:45)
[2019-04-23] MEDS: EPINEPHRINE INJ/PF 1 MG/1 ML AMPULE ONE ×2 (07:42→07:45)
[2019-04-23] MEDS: DORZOLAMIDE HCL 2%/TIMOLOL MALEAT 0.5% OPH SOLN 10 ML OS PRN ×2 (07:42→07:56)
[2019-04-23] MEDS: CHONDR SU A NA/HYALUR INTRAOC KIT (SURGICARE) ONE ×2 (07:42→07:45)
--- NOTE | 2019-04-23 10:02 | Operative Report ---
Operative Report-[facility] Operative Report: DATE OF SURGERY: 04/23/2019 PREOPERATIVE DIAGNOSIS: CATARACT, LEFT EYE. POSTOPERATIVE DIAGNOSIS: CATARACT, LEFT EYE. PROCEDURE PERFORMED: PHACOEMULSIFICATION WITH POSTERIOR CHAMBER INTRAOCULAR LENS, LEFT EYE. Intraocular Lens Model : SN 60 WF 21.0 Total Phaco Time: 1.37 CDE SURGEON: CAROLINA DANIEL MD ANESTHESIA: TOPICAL WITH MAC. INDICATIONS FOR SURGERY: Difficultly driving at night PROCEDURE: The patient was brought to the Operating Room and placed on the operative table. Following tetracaine drops, topical anesthesia was administered. This consisted of instrument wipe pledgets soaked in a solution of 4% Xylocaine mixed with 0.75% Marcaine in a 1:2 ratio. A 2 x 1 cm pledget was placed in the superior fornix. A 1 x 1 cm pledget was placed in the inferior fornix. The eye was patched shut for 5 minutes. The patch was removed. The eye was sterilely prepped and draped in the usual manner. Lid speculum was placed in the eye. The pledgets were removed. 4-0 black silk sutures were placed around the superior and the inferior rectus muscles to be used as traction. A conjunctival peritomy was made at the 10 o'clock position. Hemostasis was obtained with bipolar cautery. A posterior limbal groove was created using a crescent knife and dissected anteriorly towards the cornea. A sharp point blade was used to create a paracentesis site at the 2 o'clock position. 0.2 cc non preserved Lidocaine was injected into the anterior chamber. A 2.4 mm keratome was used to enter the anterior chamber through the groove. Viscoelastic was injected into the anterior chamber. An anterior capsulotomy was performed using Utrata forceps in a capsulorrhexis fashion. Hydrodissection and hydrodelineation were performed. Phacoemulsification was performed in [id number] technique. Following this, the I/A unit was used to remove residual cortex. Viscoelastic was injected into the capsular bag. The Intraocular lens was placed in the capsular bag. The I/A unit was used to remove residual viscoelastic. The wound was seen to be watertight under high and low pressure, and no sutures were placed. The intraocular lens was well centered. The pressure was adjusted in the eye to normal pressure. The 4-0 black silk sutures and lid speculum were removed. The eye was shielded after Besivance,prednisolone, and Cosopt drops were placed. The patient tolerated the procedure well and was sent to the Recovery Room in good condition.
== END 2019-04-23 08:31 | disposition home or self-care (01) ==
LOC: SC 06:44
PROVIDERS: ATTEND Ophthalmology
DX: H25.812 Combined forms of age-related cataract, left eye (principal); Z96.1 Presence of intraocular lens; H35.371 Puckering of macula, right eye; J45.909 Unspecified asthma, uncomplicated; Z85.820 Personal history of malignant melanoma of skin
CPT/HCPCS: 66984; V2632; J2250; J3490 ×5; A9270; J0171; J2405; J2704